=== PATIENT | male | born 1940 | race Caucasian/White ===

== ENCOUNTER 2017-05-01 09:48 | Observation (INO) | payer OTHER ==
[~2017-05-01] VITALS: Ht 180.3 cm; Wt 107.3 kg
[~2017-05-01 09:48] MED LIST: ASPERDRINK81 MG PO; ASPIR 8181 M1 PO; COUMADIN2.5 MG PO; DAILY VITAMIN1 EAC4 PO; FELODIPINE ER10 MG PO; FISH OIL CONC1 EACH PO; FLOMAX0.4 MG PO; INDERAL40 MG PO; KRILL OIL 5001 EACH PO; METHYLPREDNISOLO8 MG PO; MICROZIDE12.5 M1 PO; MOMETASONE FURO45 GM; OMEGA-3 FLAXS1000 MG PO; PERCOCET 5/31 TABLET PO; VITAMIN D400 UNIT PO; WELCHOL625 MG PO
[2017-05-01 10:55] LABS: HEMATOCRIT 38.8 % (38.0-50.0); MCH 29.7 PG (29.0-34.0); MCHC 33.5 G/DL (30.0-36.0); MCV 88.6 FL (86-99); MEAN PLAT.VOLUME 11.1 uM^3 (9.0-12.4); PLATELET COUNT 118 K/uL (156-360); RBC DIS.WIDTH-CV 13.2 % (11.8-14.6); RBC DIS.WIDTH-SD 43.5 % (39-53); RED BLOOD COUNT 4.38 M/uL (4.00-5.50)
[2017-05-01 11:09] LABS: CHLORIDE 111 mEq/L (99-109); POTASSIUM 4.6 mEq/L (3.7-5.4); SODIUM 142 mEq/L (136-147)
[2017-05-01 11:11] LABS: GLUCOSE 87 mg/dL (70-99)
[2017-05-01 11:13] LABS: ANION GAP 10 MEQ/L (2-14)
[2017-05-01 11:15] LABS: GFR ESTIMATE (CALCULATED) 42 mL/min/
[2017-05-01 11:16] LABS: UREA NITROGEN (BUN) 29 mg/dL (9-23)
[2017-05-01 11:18] LABS: TROP-I INTERPRETATION NEGATIVE; TROPONIN-I 0.02 ng/mL (0.0-0.30)
[2017-05-01] MEDS ORDERED: JANTOVEN2.5 MG PO ×2 (12:11→12:12)
[2017-05-01] MEDS ORDERED: COLESTID1 GM PO (12:15)
[2017-05-01] MEDS ORDERED: APRESOLINE50 MG PO (12:15)
[2017-05-01] MEDS ORDERED: FLONASE16 G1 BOTH NARES (12:16)
[2017-05-01] MEDS ORDERED: BENICAR40 MG PO (12:16)
[2017-05-01] MEDS ORDERED: NITROSTAT0.4 MG SL (12:20)
[2017-05-01 14:47] VITALS: BP 154/67
[2017-05-01 16:20] LABS: INTER. NORMALIZED RATIO 2.6; PROTHROMBIN TIME 29.6 SEC (10.2-12.9)
[2017-05-01 16:30] VITALS: BP 176/75
[2017-05-01 16:46] LABS: TROP-I INTERPRETATION NEGATIVE; TROPONIN-I < 0.01 ng/mL (0.0-0.30)
[2017-05-01 22:17] LABS: TROP-I INTERPRETATION NEGATIVE; TROPONIN-I 0.01 ng/mL (0.0-0.30)
[2017-05-02 00:21] VITALS: BP 168/71
[2017-05-02 04:14] VITALS: BP 166/74
[2017-05-02 07:12] LABS: HEMATOCRIT 37.9 % (38.0-50.0); INTER. NORMALIZED RATIO 2.5; MCH 30.9 PG (29.0-34.0); MCHC 35.1 G/DL (30.0-36.0); MCV 88.1 FL (86-99); MEAN PLAT.VOLUME 11.8 uM^3 (9.0-12.4); PLATELET COUNT 114 K/uL (156-360); PROTHROMBIN TIME 28.4 SEC (10.2-12.9); RBC DIS.WIDTH-CV 13.7 % (11.8-14.6); WHITE BLOOD COUNT 4.8 K/uL (4.1-10.2)
[2017-05-02 07:37] LABS: ANION GAP 10 MEQ/L (2-14); CHLORIDE 109 MEQ/L (99-109); GFR ESTIMATE (CALCULATED) 42 mL/min/; GLUCOSE 87 mg/dL (70-99); POTASSIUM 4.4 MEQ/L (3.7-5.4); SAMPLE HEMOLYSIS CHECK 0; SAMPLE ICTERIC CHECK 0; SAMPLE LIPEMIA CHECK 0; SODIUM 141 MEQ/L (136-147); UREA NITROGEN (BUN) 26 mg/dL (9-23)
[2017-05-02 07:55] LABS: TROP-I INTERPRETATION NEGATIVE; TROPONIN-I 0.02 ng/mL (0.0-0.30)
[2017-05-02 08:15] VITALS: BP 154/86
== END 2017-05-02 10:03 | disposition home or self-care (01) ==
LOC: EME 09:48 → EDOF 12:16 → ENRESERV 12:17 → 5WEST 14:36
PROVIDERS: Emergency Medicine; Hospitalist
DX: R07.9 Chest pain, unspecified (principal); R91.8 Other nonspecific abnormal finding of lung field; I12.9 Hypertensive chronic kidney disease with stage 1 through stage 4 chronic kidney disease, or unspecified chronic kidney disease; N18.9 Chronic kidney disease, unspecified; I25.10 Atherosclerotic heart disease of native coronary artery without angina pectoris; Z95.5 Presence of coronary angioplasty implant and graft; I49.5 Sick sinus syndrome; Z95.0 Presence of cardiac pacemaker; Z85.46 Personal history of malignant neoplasm of prostate; I35.8 Other nonrheumatic aortic valve disorders; I48.0 Paroxysmal atrial fibrillation; Z79.01 Long term (current) use of anticoagulants; E78.5 Hyperlipidemia, unspecified; I71.4 Abdominal aortic aneurysm, without rupture; M10.9 Gout, unspecified; Z82.49 Family history of ischemic heart disease and other diseases of the circulatory system; Z88.1 Allergy status to other antibiotic agents; Z88.8 Allergy status to other drugs, medicaments and biological substances
CPT/HCPCS: 71020; 80048; 83880; 84484; 85027; 85610; 93005; 99281; 99284; G0378; J1956

== ENCOUNTER 2017-12-29 10:31 | Emergency (ER) | payer OTHER ==
[~2017-12-29] VITALS: Ht 180.3 cm; Wt 105.8 kg
[~2017-12-29 10:31] MED LIST changes: +APRESOLINE50 MG PO; +BENICAR40 MG PO; +COLESTID1 GM PO; +FLONASE16 G1 BOTH NARES; +JANTOVEN2.5 MG PO; +NITROSTAT0.4 MG SL
[2017-12-29 11:02] LABS: HEMATOCRIT 42.1 % (38.0-50.0); HEMOGLOBIN 14.3 G/DL (12.5-16.6); MCH 30.4 PG (29.0-34.0); MCV 89.4 FL (86-99); PLATELET COUNT 132 K/uL (156-360); RBC DIS.WIDTH-CV 13.3 % (11.8-14.6); RBC DIS.WIDTH-SD 43.9 % (39-53); RED BLOOD COUNT 4.71 M/uL (4.00-5.50); WHITE BLOOD COUNT 5.2 K/uL (4.1-10.2)
[2017-12-29 11:19] LABS: CHLORIDE 109 mEq/L (99-109); POTASSIUM 4.9 mEq/L (3.7-5.4); SODIUM 142 mEq/L (136-147)
[2017-12-29 11:20] LABS: GLUCOSE 93 mg/dL (70-99)
[2017-12-29 11:24] LABS: CREATININE 1.8 mg/dL (0.6-1.3); GFR ESTIMATE (CALCULATED) 39 mL/min/ (58.99-99999); TROP-I INTERPRETATION NEGATIVE; TROPONIN-I 0.02 ng/mL (0.0-0.30)
[2017-12-29 11:25] LABS: UREA NITROGEN (BUN) 27 mg/dL (9-23)
[2017-12-29 11:33] LABS: INTER. NORMALIZED RATIO 2.3
[2017-12-29 13:25] LABS: TROP-I INTERPRETATION NEGATIVE; TROPONIN-I 0.02 ng/mL (0.0-0.30)
[2017-12-29 14:09] VITALS: BP 139/49
== END 2017-12-29 14:10 | disposition home or self-care (01) ==
LOC: EME 10:31
PROVIDERS: Emergency Medicine
DX: R07.89 Other chest pain (principal); I48.91 Unspecified atrial fibrillation; Z79.01 Long term (current) use of anticoagulants; Z95.5 Presence of coronary angioplasty implant and graft; Z95.0 Presence of cardiac pacemaker; E78.5 Hyperlipidemia, unspecified; I10 Essential (primary) hypertension; M10.9 Gout, unspecified; Z85.46 Personal history of malignant neoplasm of prostate; Z88.6 Allergy status to analgesic agent
CPT/HCPCS: 71046; 80048; 84484; 85027; 85610; 93005; 99281; 99284